=== PATIENT | female | born 1960 | race Caucasian/White ===

== ENCOUNTER 2016-09-28 22:20 | Emergency (ER) | payer MEDICARE, OTHER ==
[~2016-09-28] VITALS: Wt 125.5 kg
[~2016-09-28 22:20] MED LIST: CARI350T PO; DIVA500T7 PO; OMEP20CA9 PO; PARO40TA48 PO; SOLI10TA5 PO; ZIPR60CA6 PO
[2016-09-29] MEDS ORDERED: KETOROLAC 30 MG INJ IM STA (00:46)
[2016-09-29] MEDS ORDERED: LORAZEPAM 1 MG TAB PO ONE (01:00)
[2016-09-29] MEDS ORDERED: HYDROCODONE/APAP (10/325) TAB PO ONE (01:00)
[2016-09-29] MEDS ORDERED: NAPR-260 PO (01:42)
[2016-09-29] MEDS ORDERED: HYDR-906 PO (01:42)
[2016-09-29] MEDS ORDERED: morphine 10 MG INJ IM ONE (02:00)
[2016-09-29 02:14] VITALS: BP 115/66; PULSE 100; RESP 16
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
== END 2016-09-29 02:14 | disposition home or self-care (01) ==
LOC: FTE 22:20
DX: M54.2 Cervicalgia (principal); F17.210 Nicotine dependence, cigarettes, uncomplicated; J44.9 Chronic obstructive pulmonary disease, unspecified; Z04.1 Encounter for examination and observation following transport accident
CPT/HCPCS: 96372; 99284; J1885; J2270

== ENCOUNTER 2016-11-06 12:38 | Emergency (ER) | payer MEDICARE, OTHER ==
[~2016-11-06] VITALS: Wt 120.0 kg
[~2016-11-06 12:38] MED LIST changes: +HYDR-906 PO; +NAPR-260 PO
--- NOTE | 2016-11-06 13:02 | ERD ---
ER Documentation Chief Complaint Date/Time DATE: 11/06/16 TIME: 13:01 Chief Complaint PER PT FAMILY PT WAS "NOT ACTING HERSELF" HPI Patient is a 55-year-old female with bipolar disorder who presents altered. The patient was brought in by ambulance. She was "altered" per a friend who did not come to the emergency department with her. The patient says that she takes a lot of medications for her bipolar disorder and was recently given temazepam as a new medication. She had a recent in the family and took a temazepam for anxiety but denies suicidal or homicidal ideation. Upon review of old medical records the patient has multiple visits to the ER for various complaints. She does have a primary doctor. ROS All systems reviewed and are negative except as per history of present illness. Medications Home Meds Active Scripts Naproxen* (Naprosyn*) 500 Mg Tablet, 500 MG PO BID Y for PAIN AND/OR INFLAMMATION, #20 TAB Prov:BRI RASMUSSEN PA-C 09/29/16 Hydrocodone/Acetaminophen ([place] 5-325 Tablet) 1 Each Tablet, 1 TAB PO Q6H Y for PAIN, #7 TAB Prov:BRI RASMUSSEN PA-C 09/29/16 Reported Medications Solifenacin* (Vesicare*) 10 Mg Tablet, 10 MG PO DAILY 08/20/13 Carisoprodol* (Soma*) 350 Mg Tablet, 350 MG PO TID Y for MUSCLE SPASMS 08/20/13 Paroxetine Hcl* (Paxil*) 40 Mg Tablet, 40 MG PO DAILY 08/20/13 Divalproex Sodium* (Depakote ER*) 500 Mg Tabsr, 1500 MG PO DAILY 08/20/13 Omeprazole* (Prilosec*) 20 Mg Capsule.dr, 20 MG PO DAILY 08/20/13 Ziprasidone* (Geodon*) 60 Mg Capsule, 120 MG PO DAILY 04/03/13 Allergies Allergies: Coded Allergies: No Known Drug Allergy (Verified Allergy, Unknown, 09/03/13) PMhx/Soc History of Surgery: Yes (gall bladder) Anesthesia Reaction: No Hx Neurological Disorder: No Hx Respiratory Disorders: Yes (COPD) Hx Cardiac Disorders: No Hx Psychiatric Problems: Yes (BIPOLAR) Hx Miscellaneous Medical Probl: No Hx Alcohol Use: No Hx Substance Use: No Hx Tobacco Use: Yes FmHx Family History: No diabetes Physical Exam Vitals Vital Signs Date Time Temp Pulse Resp B/P Pulse Ox O2 Delivery O2 Flow Rate FiO2 11/06/16 12:53 98.0 74 18 116/68 99 Physical Exam Const: No acute distress Head: Atraumatic Eyes: Normal Conjunctiva ENT: Normal External Ears, Nose and Mouth. Neck: Full range of motion..~ No meningismus. Resp: Clear to auscultation bilaterally Cardio: Regular rate and rhythm, no murmurs Abd: Soft, non tender, non distended. Normal bowel sounds Skin: No petechiae or rashes Back: No midline or flank tenderness Ext: No cyanosis, or edema Neur: Awake and alert, answers all questions appropriately Psych: No suicidal or homicidal ideation Results 24 hrs Laboratory Tests Test 11/06/16 12:58 Bedside Glucose 118mg/dL Procedures/[facility] Patient is a 55-year-old female with bipolar disorder presents altered. She is now awake alert and oriented 3. She is well-appearing with stable vital signs. I believe this is most likely an accidental overdose on temazepam and she was more difficult to arouse by the roommate. The roommate is not here however to discuss the story. In any case I do not believe patient requires further workup or admission the hospital this time. The patient will be discharged by ambulance back to her apartment. She can return for any worsening symptoms. I doubt intrarenal hemorrhage or mass. I doubt intentional overdose. Departure Diagnosis: Primary Impression: Overdose Encounter type: initial encounter Injury intent: accidental or unintentional Qualified Code: T50.901A - Overdose, accidental or unintentional , initial encounter Additional Impression: Altered level of consciousness Condition: Fair Patient Instructions: Altered Loc, Overdose, Accidental (Adult) Referrals: Your doctor Additional Instructions: Call your primary care doctor TOMORROW for an appointment during the next 1-2 days.See the doctor sooner or return here if your condition worsens before your appointment time. GERMÁN GARCIA MD Nov 06, 2016 13:02
== END 2016-11-06 18:19 | disposition home or self-care (01) ==
LOC: E/R 12:38
DX: T42.4X1A Poisoning by benzodiazepines, accidental (unintentional), initial encounter (principal); R40.4 Transient alteration of awareness; J44.9 Chronic obstructive pulmonary disease, unspecified; F17.210 Nicotine dependence, cigarettes, uncomplicated
CPT/HCPCS: 82962; 99282

== ENCOUNTER 2016-12-04 12:18 | Emergency (ER) | END 2016-12-04 16:35 | disposition home or self-care (01) | DX: F13.129 Sedative, hypnotic or anxiolytic abuse with intoxication, unspecified (principal); R40.2252 Coma scale, best verbal response, oriented, at arrival to emergency department; J44.9 Chronic obstructive pulmonary disease, unspecified; R40.2142 Coma scale, eyes open, spontaneous, at arrival to emergency department; R40.2362 Coma scale, best motor response, obeys commands, at arrival to emergency department ==

== ENCOUNTER 2017-02-27 17:07 | Emergency (ER) | END 2017-02-27 22:33 | disposition home or self-care (01) | DX: R19.7 Diarrhea, unspecified (principal); J44.9 Chronic obstructive pulmonary disease, unspecified; Z87.891 Personal history of nicotine dependence | CPT/HCPCS: 71010; 94644; 94664; 96372; 99285; J1100; J1885 ==

== ENCOUNTER 2017-03-20 15:22 | Emergency (ER) | payer MEDICARE, OTHER ==
[~2017-03-20] VITALS: Ht 162.6 cm; Wt 119.5 kg
[~2017-03-20 15:22] MED LIST changes: +ACET500C5 PO; +ALBU8.5H3 INH
[2017-03-20 15:24] VITALS: Ht 162.6 cm; Wt 119.5 kg
[2017-03-20] MEDS ORDERED: GUAI473L22 PO (18:45)
[2017-03-20] MEDS ORDERED: GUAIFENESIN/CODEINE 5ML CUP PO ONE (19:00)
--- NOTE | 2017-03-20 19:02 | ERD ---
ER Documentation Chief Complaint Chief Complaint COUGH, CONGESTION, SORE THROAT, SINUS CONGESTION, [place] HPI 52-year-old female presents here to emergency department for complaints of cough runny nose nasal congestion wheezing sinus congestion runny for the last 1 month. Patient has COPD, albuterol at home. Patient has been having dry cough, does not cough up any phlegm or blood. Patient does not have any fever or chills ROS All systems reviewed and are negative except as per history of present illness. Medications Home Meds Active Scripts Ibuprofen* (Motrin*) 600 Mg Tab, 600 MG PO Q6H Y for PAIN AND OR ELEVATED TEMP, #30 TAB Prov:MIKE MAN NP 03/20/17 Prednisone* (Prednisone*) 50 Mg Tablet, 50 MG PO DAILY, #5 TAB Prov:MIKE MAN NP 03/20/17 Cetirizine Hcl* (Zyrtec*) 10 Mg Capsule, 10 MG PO DAILY, #30 TAB.CHEW Prov:MIKE MAN NP 03/20/17 Azithromycin* (Zithromax*) 250 Mg Tablet, 250 MG PO .ZPACK DIRECTED, #6 TAB TAKE 500 MG (2 TABS) THE FIRST DAY THEN 250 MG (1 TAB) DAYS 2-5 Prov:MIKE MAN NP 03/20/17 Guaifenesin-Codeine Phosphate* (Guaifenesin* AC Cough Syrup) 473 Ml Liquid, 10 ML PO Q4H Y for COUGH, #60 ML Prov:MIKE MAN NP 03/20/17 Albuterol Sulfate* (Proair HFA*) 8.5 Gm Hfa.aer.ad, 2 PUFF INH Q6, #1 INHALER Prov:EDMUNDO GUERRIER PA-C 02/27/17 Acetaminophen* (Tylophen*) 500 Mg Capsule, 1 CAP PO Q6H Y for PAIN AND OR ELEVATED TEMP, #14 CAP Prov:EDMUNDO GUERRIER PA-C 02/27/17 Naproxen* (Naprosyn*) 500 Mg Tablet, 500 MG PO BID Y for PAIN AND/OR INFLAMMATION, #20 TAB Prov:BRI RASMUSSEN PA-C 09/29/16 Hydrocodone/Acetaminophen ([place] 5-325 Tablet) 1 Each Tablet, 1 TAB PO Q6H Y for PAIN, #7 TAB Prov:BRI RASMUSSEN PA-C 09/29/16 Reported Medications Solifenacin* (Vesicare*) 10 Mg Tablet, 10 MG PO DAILY 08/20/13 Carisoprodol* (Soma*) 350 Mg Tablet, 350 MG PO TID Y for MUSCLE SPASMS 08/20/13 Paroxetine Hcl* (Paxil*) 40 Mg Tablet, 40 MG PO DAILY 08/20/13 Divalproex Sodium* (Depakote ER*) 500 Mg Tabsr, 1500 MG PO DAILY 08/20/13 Omeprazole* (Prilosec*) 20 Mg Capsule.dr, 20 MG PO DAILY 08/20/13 Ziprasidone* (Geodon*) 60 Mg Capsule, 120 MG PO DAILY 04/03/13 Allergies Allergies: Coded Allergies: No Known Drug Allergy (Verified Allergy, Unknown, 09/03/13) PMhx/Soc Medical and Surgical Hx: pt denies Medical Hx, pt denies Surgical Hx History of Surgery: Yes (gall bladder) Anesthesia Reaction: No Hx Neurological Disorder: No Hx Respiratory Disorders: Yes (COPD) Hx Cardiac Disorders: No Hx Psychiatric Problems: Yes (BIPOLAR) Hx Miscellaneous Medical Probl: No Hx Alcohol Use: No Hx Substance Use: No Hx Tobacco Use: No Smoking Status: Never smoker FmHx Family History: No coronary disease, No diabetes, No other Physical Exam Vitals Vital Signs Date Time Temp Pulse Resp B/P Pulse Ox O2 Delivery O2 Flow Rate FiO2 03/20/17 21:24 98.6 81 16 113/78 98 Room Air 03/20/17 15:24 98.6 91 18 113/71 97 Physical Exam GENERAL: The patient is well developed and appropriate for usual state of health, in no apparent distress. CHEST: Clear to auscultation bilaterally. There are no rales, wheezes or rhonchi. HEART: Regular rate and rhythm. No murmurs, clicks, rubs or gallops. No S3 or S4. ABDOMEN: Soft, nontender and nondistended. Good bowel sounds. No rebound or guarding. No gross peritonitis. No gross organomegaly or masses. No Vargas sign or McBurney point tenderness. BACK: No midline or flank tenderness. EXTREMITIES: Equal pulses bilaterally. There is no peripheral clubbing, cyanosis or edema. No focal swelling or erythema. Full range of motion. Grossly neurovascularly intact. NEURO: Alert and oriented. Cranial nerves 2-12 intact. Motor strength in all 4 extremities with 5/5 strength. Sensation grossly intact. Normal speech and gait. SKIN: There is no apparent rash or petechia. The skin is warm and dry. HEMATOLOGIC AND LYMPHATIC: There is no evidence of excessive bruising or lymphedema. No gross cervical, axillary, or inguinal lymphadenopathy. Results 24 hrs Current Medications Medications (Trade) Dose Ordered Sig/Mere Route PRN Reason Start Time Stop Time Status Last Admin Dose Admin Guaifenesin/ Codeine Phosphate (Robitussin Ac Liquid Cup) 10 ml ONCE ONCE PO 03/20/17 19:00 03/20/17 19:01 DC 03/20/17 19:12 Patient was given cough medication here in the emergency department, verbalized feeling better afterwards. PROCEDURE: XR Chest. CLINICAL INDICATION: Cough times 1 month TECHNIQUE: Single frontal view of the chest was obtained COMPARISON: 02/27/2017 and 09/12/2014 FINDINGS: There is hypoinflation lungs and minimal bibasilar atelectasis. There is minimal prominence of the lung interstitium likely minimal chronic changes. The heart does not appear to be grossly enlarged. Calcification in the aortic arch. There is no pleural effusion or pneumothorax seen. IMPRESSION: Hypoinflation of the lungs and minimal bibasilar atelectasis RPTAT: HJES .Kirk Thayer MD, MD Date Time Electronically viewed and signed by .Kirk Thayer MD, MD on 03/20/2017 20:26 .S/ CC: MIKE MAN HIV PREVENTION SPECIALIST Procedures/MDM Medical Decision Making: Patient symptoms are most likely consistent with acute bronchitis, which most likely atypical infection. There is low suspicion for Pneumonia at this time since patients lungs sounds are clear, patient O2 saturation is normal and patient doesnt show any respiratory distress. Patient s chest xray doesnt show infiltrates or any other cardiopulmonary emergencies at this time. There is low suspicion for other cardiopulmonary emergencies at this time such as CHF, Pulmonary Embolism, Pneumothorax, Aortic Aneurysm or any other cardiopulmonary emergencies at this time. There is low suspicion for sepsis. Patient appears well and is hemodynamically stable. Fever is controlled with medicines. Disposition: Home. Condition: Stable Prescriptions: Guaifenesin with codeine, Zyrtec, ibuprofen, prednisone, azithromycin Instructions: Patient is advised to take medications as prescribed. Patient is advised to rest. Patient advised to increase fluid intake, do humidifier at home and if possible, do salt water gargles. Patient is advised that if symptoms are worse, shortness of breath, uncontrolled fever, stridor, vomiting, worst signs and symptoms to return to emergency department immediately. Otherwise, patient is advised to follow up with primary doctor in 5-7 days. Disclaimer: Inadvertent spelling and grammatical errors are likely due to EHR/ dictation software use and do not reflect on the overall quality of patient care. Also, please note that the electronic time recorded on this note does not necessarily reflect the actual time of the patient encounter. Departure Diagnosis: Primary Impression: Acute bronchitis Bronchitis organism: unspecified organism Qualified Code: J20.9 - Acute bronchitis, unspecified organism Condition: Stable Patient Instructions: Bronchitis, Antiobiotic Treatment (Adult) Additional Instructions: Patient is advised to take medications as prescribed. Patient is advised to rest. Patient advised to increase fluid intake, do humidifier at home and if possible, do salt water gargles. Patient is advised that if symptoms are worse, shortness of breath, uncontrolled fever, stridor, vomiting, worst signs and symptoms to return to emergency department immediately. Otherwise, patient is advised to follow up with primary doctor in 5-7 days. MIKE MAN NP Mar 20, 2017 19:02
--- NOTE | 2017-03-20 20:26 | RADRPT ---
PROCEDURE: XR Chest. CLINICAL INDICATION: Cough times 1 month TECHNIQUE: Single frontal view of the chest was obtained COMPARISON: 02/27/2017 and 09/12/2014 FINDINGS: There is hypoinflation lungs and minimal bibasilar atelectasis. There is minimal prominence of the l devonte interstitium likely minimal chronic changes. The heart does not appear to be grossly enlarged. C alcification in the aortic arch. There is no pleural effusion or pneumothorax seen. IMPRESSION: Hypoinflation of the lungs and minimal bibasilar atelectasis RPTAT: HJES .Kirk Thayer MD, MD Date Time Electronically viewed and signed by .Kirk Thayer MD, MD on 03/20/2017 20:26 .S/
[2017-03-20] MEDS ORDERED: AZIT250T94 PO (21:00)
[2017-03-20] MEDS ORDERED: PRED50TA PO (21:00)
[2017-03-20] MEDS ORDERED: CETI10CA PO (21:00)
[2017-03-20] MEDS ORDERED: IBUP-1542 PO (21:00)
[2017-03-20 21:24] VITALS: BP 113/78; PULSE 81; RESP 16; TEMP 98.6
== END 2017-03-20 21:25 | disposition home or self-care (01) ==
LOC: FTE 15:22
DX: J20.9 Acute bronchitis, unspecified (principal); J44.9 Chronic obstructive pulmonary disease, unspecified
CPT/HCPCS: 71010

== ENCOUNTER 2017-05-15 19:33 | Emergency (ER) | payer MEDICARE, OTHER ==
[~2017-05-15] VITALS: Ht 162.6 cm; Wt 122.9 kg
[~2017-05-15 19:33] MED LIST changes: +AZIT250T94 PO; +CETI10CA PO; +GUAI473L22 PO; +IBUP-1542 PO; +PRED50TA PO
[2017-05-15 19:40] VITALS: Ht 162.6 cm; Wt 122.9 kg
[2017-05-15] MEDS ORDERED: ALBUTEROL 0.083% (NEB) 2.5 MG/3 ML AMP NEB STA (22:19)
[2017-05-15] MEDS ORDERED: METHYLPREDNISOLONE 125 MG INJ IV STA (22:19)
[2017-05-15] MEDS ORDERED: ONDANSETRON (ODT) 4 MG TAB ODT STA (22:36)
[2017-05-15] MEDS ORDERED: METHYLPREDNISOLONE 125 MG INJ IM STA (23:35)
--- NOTE | 2017-05-15 23:51 | RADRPT ---
PROCEDURE: XR Chest. CLINICAL INDICATION: Asthma exacerbation TECHNIQUE: Single frontal view of the chest was obtained COMPARISON: Chest radiograph dated September 12, 2014. FINDINGS: The heart and mediastinum are within normal limits. The lungs are clear. There is no pleural effusion or pneumothorax. The osseous structures are unremarkable. IMPRESSION: 1. No acute cardiopulmonary disease. RPTAT:AAJJ Physician Giselle Date Time Electronically viewed and signed by Jeanna Guido Physician on 05/15/2017 23:51 QL/
[2017-05-16] MEDS ORDERED: ALBU8.5H3 INH (00:02)
[2017-05-16] MEDS ORDERED: ACET325T33 PO (00:02)
[2017-05-16] MEDS ORDERED: FLUT9.9S NASAL (00:02)
[2017-05-16] MEDS ORDERED: PRED20TA PO (00:02)
--- NOTE | 2017-05-16 00:10 | ERD ---
ER Documentation Chief Complaint Chief Complaint cough x 4 months HPI 56 year old female to the emergency department complaining of cough and shortness of breath for 4 months. Patient states that she has been evaluated by many physicians and ERs, COPD is questionable. Patient states that she has had some doctors tell her that she does not have COPD and some pallor that she does. She has tried spiriva, albuterol,advair in the past with some relief. He has not tried anything today. She denies any chest pain. She denies fevers ROS All systems reviewed and are negative except as per history of present illness. Medications Home Meds Active Scripts Fluticasone Propionate (Flonase Allergy Relief) 9.9 Ml [place].susp, 1 SPRAY NASAL BID, #1 BOTTLE TO EACH NOSTRIL Prov:TEJAL MARTINEZ PA-C 05/16/17 Acetaminophen* (Tylenol*) 325 Mg Tablet, 2 TAB PO Q4 Y for PAIN AND OR ELEVATED TEMP, #20 TAB Prov:TEJAL MARTINEZ PA-C 05/16/17 Albuterol Sulfate* (Proair HFA*) 8.5 Gm Hfa.aer.ad, 2 PUFF INH Q4H Y for WHEEZING AND SOB, #1 INHALER Prov:TEJAL MARTINEZ PA-C 05/16/17 Prednisone* (Prednisone*) 20 Mg Tab, 40 MG PO DAILY for 4 Days, TAB Prov:TEJAL MARTINEZ PA-C 05/16/17 Ibuprofen* (Motrin*) 600 Mg Tab, 600 MG PO Q6H Y for PAIN AND OR ELEVATED TEMP, #30 TAB Prov:MIKE MAN NP 03/20/17 Prednisone* (Prednisone*) 50 Mg Tablet, 50 MG PO DAILY, #5 TAB Prov:MIKE MAN NP 03/20/17 Cetirizine Hcl* (Zyrtec*) 10 Mg Capsule, 10 MG PO DAILY, #30 TAB.CHEW Prov:MIKE MAN NP 03/20/17 Azithromycin* (Zithromax*) 250 Mg Tablet, 250 MG PO .BLAKE DIRECTED, #6 TAB TAKE 500 MG (2 TABS) THE FIRST DAY THEN 250 MG (1 TAB) DAYS 2-5 Prov:MIKE MAN NP 03/20/17 Guaifenesin-Codeine Phosphate* (Guaifenesin* AC Cough Syrup) 473 Ml Liquid, 10 ML PO Q4H Y for COUGH, #60 ML Prov:MIKE MAN NP 03/20/17 Albuterol Sulfate* (Proair HFA*) 8.5 Gm Hfa.aer.ad, 2 PUFF INH Q6, #1 INHALER Prov:EDMUNDO GUERRIER PA-C 02/27/17 Acetaminophen* (Tylophen*) 500 Mg Capsule, 1 CAP PO Q6H Y for PAIN AND OR ELEVATED TEMP, #14 CAP Prov:EDMUNDO GUERRIER PA-C 02/27/17 Naproxen* (Naprosyn*) 500 Mg Tablet, 500 MG PO BID Y for PAIN AND/OR INFLAMMATION, #20 TAB Prov:BRI RASMUSSEN PA-C 09/29/16 Hydrocodone/Acetaminophen ([place] 5-325 Tablet) 1 Each Tablet, 1 TAB PO Q6H Y for PAIN, #7 TAB Prov:BRI RASMUSSEN PA-C 09/29/16 Reported Medications Solifenacin* (Vesicare*) 10 Mg Tablet, 10 MG PO DAILY 08/20/13 Carisoprodol* (Soma*) 350 Mg Tablet, 350 MG PO TID Y for MUSCLE SPASMS 08/20/13 Paroxetine Hcl* (Paxil*) 40 Mg Tablet, 40 MG PO DAILY 08/20/13 Divalproex Sodium* (Depakote ER*) 500 Mg Tabsr, 1500 MG PO DAILY 08/20/13 Omeprazole* (Prilosec*) 20 Mg Capsule.dr, 20 MG PO DAILY 08/20/13 Ziprasidone* (Geodon*) 60 Mg Capsule, 120 MG PO DAILY 04/03/13 Allergies Allergies: Coded Allergies: No Known Drug Allergy (Verified Allergy, Unknown, 09/03/13) PMhx/Soc History of Surgery: Yes (gall bladder) Anesthesia Reaction: No Hx Neurological Disorder: No Hx Respiratory Disorders: Yes (COPD) Hx Cardiac Disorders: No Hx Psychiatric Problems: Yes (BIPOLAR) Hx Miscellaneous Medical Probl: Yes (GERD) Hx Alcohol Use: No Hx Substance Use: No Hx Tobacco Use: No Smoking Status: Former smoker Physical Exam Vitals Vital Signs Date Time Temp Pulse Resp B/P Pulse Ox O2 Delivery O2 Flow Rate FiO2 05/15/17 22:35 99 22 99 21 05/15/17 19:40 99.7 107 20 132/89 95 Physical Exam Const: WDWD, obese Head: Atraumatic Eyes: Normal Conjunctiva ENT: Normal External Ears, Nose and Mouth. Neck: Full range of motion..no meningeal signs Resp: Clear to auscultation bilaterally No evidence of wheezing, rales Cardio: Regular rate and rhythm, no murmurs Abd: Soft, non tender, non distended. Normal bowel sounds Skin: No petechiae or rashes Back: No midline or flank tenderness Ext: No cyanosis, or edema No edema Neur: Awake and alert Psych: Normal Mood and Affect Results 24 hrs Current Medications Medications (Trade) Dose Ordered Sig/Mere Route PRN Reason Start Time Stop Time Status Last Admin Dose Admin Albuterol (Proventil 0.083% (Neb)) 5 mg ONCE STAT NEB 05/15/17 22:19 05/15/17 23:37 DC 05/15/17 22:35 Methylprednisolone Sodium Succinate (Solu-Medrol) 125 mg ONCE STAT IV 05/15/17 22:19 05/15/17 23:37 DC Ondansetron HCl (Zofran Odt) 8 mg ONCE STAT ODT 05/15/17 22:36 05/15/17 23:37 DC 05/15/17 22:48 Methylprednisolone Sodium Succinate (Solu-Medrol) 125 mg ONCE STAT IM 05/15/17 23:35 05/15/17 23:37 DC 05/15/17 23:50 Procedures/MDM Is a 56-year-old female presenting to the emergency department with questionable COPD complaining of cough for the past 4 months. Patient states that her primary care physician has referred her to a anchor tacker however she still has not gone to see that physician yet. Patient appears well, she is breathing well on room air. Her lungs are clear to auscultation bilaterally, there is no evidence of respiratory distress or use of accessory muscles. Low suspicion for congestive heart failure. Patient was given a breathing treatment and Solu-Medrol in the ER and have reassessed her and she states that she does feel better. Chest x-ray did not show any infiltrates, pneumothorax or pleural effusion. Patient was given a prescription for ProAir, Tylenol, Flonase, prednisone for the next 4 days. I discussed to continue to follow-up with the pulmonary Departure Diagnosis: Primary Impression: Cough Condition: Stable Patient Instructions: Cough, Chronic, Uncertain Cause, (Adult) Additional Instructions: FOLLOW UP WITH YOUR PRIMARY CARE PHYSICIAN TOMORROW.Return to this facility if you are not improving as expected. Take all medicines as directed. Return to this facility if you are not improving as expected. TEJAL MARTINEZ PA-C May 16, 2017 00:10
[2017-05-16] MEDS ORDERED: HYDROCODONE/APAP (5/325) TAB PO ONE (01:00)
[2017-05-16 03:01] VITALS: BP 130/90; PULSE 98; RESP 20; TEMP 98.9
== END 2017-05-16 01:30 | disposition left against medical advice (07) ==
LOC: FTE 19:33
DX: R05 Cough (principal); J44.1 Chronic obstructive pulmonary disease with (acute) exacerbation; Z87.891 Personal history of nicotine dependence
CPT/HCPCS: 71010; 94664; 96372; 99284; J2930; 93005